=== PATIENT | female | born 1995 | race Two or more races ===

== ENCOUNTER 2021-10-08 15:07 | Emergency (ER) | payer BC ==
[~2021-10-08] VITALS: Ht 165.1 cm; Wt 143.3 kg
--- NOTE | 2021-10-08 15:15 | NUR ---
BIB SELF C/O L SIDED NUMBNESS, CHEST PAIN, AND BLURRY VISION SINCE 1100 PT DENIES CHEST PAIN AT THIS TIME. HX OF STROKE 2 YRS AGO. AMBULATORY, [id number]. PLACED ON BED
--- NOTE | 2021-10-08 15:21 | NUR ---
CALLED CODE STROKE
--- NOTE | 2021-10-08 15:24 | NUR ---
CALLED TELEMED [employer] TELE NEUROLOGIST WILL BE LEENA ANTUNEZ.
[2021-10-08] MEDS ORDERED: IOHEXOL-350 100 ML VIAL IV ONE (15:27)
[2021-10-08] MEDS ORDERED: IV NS 0.9% 250 ML IV ONE (15:27)
[2021-10-08] MEDS ORDERED: METOCLOPRAMIDE HCL 10 MG/2 ML VIAL IV ONE (15:30)
[2021-10-08] MEDS ORDERED: IV NS 0.9% 500 ML BAG IV ONE (15:30)
[2021-10-08] MEDS ORDERED: ACETAMINOPHEN ES 500 MG TABLET PO ONE (15:30)
[2021-10-08 15:36] LABS: BASOPHILS # (AUTO) 0.1 K/uL (0.0-0.2); BASOPHILS % (AUTO) 0.6 % (0.0-2.0); EOSINOPHILS % (AUTO) 1.2 % (0.0-6.0); HEMATOCRIT 45 % (33-45); HEMOGLOBIN 15.2 g/dL (11.5-14.8); LYMPHOCYTES # (AUTO) 2.8 K/uL (0.8-4.8); MEAN CORPUSCULAR HGB CONC 34 g/dl (31.0-36.0); MEAN CORPUSCULAR VOLUME 90 fL (82-100); MONOCYTES # (AUTO) 0.4 K/uL (0.1-1.30); MONOCYTES % (AUTO) 4.8 % (2.0-12.0); NEUTROPHILS # (AUTO) 5.2 K/uL (1.8-8.9); NEUTROPHILS % (AUTO) 60.4 % (43.0-81.0); PLATELET COUNT (AUTO) 261 K/uL (150-450); RED BLOOD CELL COUNT(AUTO) 5.01 MIL/uL (4.0-5.2); WHITE BLOOD COUNT (AUTO) 8.6 K/uL (4.3-11.0)
[2021-10-08 15:51] LABS: CALCIUM, SERUM 9.4 mg/dL (8.5-10.1); CARBON DIOXIDE 26 mmol/L (21-32); CHLORIDE 96 mmol/L (98-107); CREATININE 0.6 mg/dL (0.6-1.3); GLUCOSE 343 mg/dL (74-106); POTASSIUM 4.1 mmol/L (3.5-5.1); SODIUM SERUM 130 mmol/L (136-145); UREA NITROGEN, BLOOD 12 mg/dL (7-18)
[2021-10-08] MEDS ORDERED: METOCLOPRAMIDE HCL 10 MG/2 ML VIAL ONE (16:02)
[2021-10-08] MEDS ORDERED: ACETAMINOPHEN ES 500 MG TABLET ONE (16:03)
[2021-10-08] MEDS ORDERED: KETOROLAC TROMETHAMINE INJ 30 MG/ML VIAL IV ONE (16:30)
[2021-10-08] MEDS ORDERED: diphenhydrAMINE HCL 50 MG/ML VIAL IV ONE (16:30)
--- NOTE | 2021-10-08 16:45 | NUR ---
PATIENT REVIEWED BY DR ALEX
[2021-10-08] MEDS ORDERED: SUMA50TA PO (17:22)
[2021-10-08] MEDS ORDERED: IBUP-1955 PO (17:22)
--- NOTE | 2021-10-08 17:30 | NUR ---
IV removed. Catheter intact and site benign. Pressure and 4x4 applied to site. No bleeding noted.Patient discharged to home in stable condition. Written and verbal after care instructions given. Patient verbalizes understanding of instruction.
[2021-10-08 17:35] VITALS: BP 136/92
== END 2021-10-08 17:30 | disposition home or self-care (01) ==
LOC: ER 15:27
DX: G43.909 Migraine, unspecified, not intractable, without status migrainosus (principal); R53.1 Weakness; E11.65 Type 2 diabetes mellitus with hyperglycemia; Z98.890 Other specified postprocedural states; Z86.73 Personal history of transient ischemic attack (TIA), and cerebral infarction without residual deficits
CPT/HCPCS: 36415; 70450; 70496; 70498; 71045; 80048; 82962; 84484; 84703; 85025; 85730; 93005; 96374; 99285; J2765; J7040; J7050; Q9967